=== PATIENT | female | born 1985 | race Caucasian/White ===

== ENCOUNTER 2021-02-04 08:15 | Inpatient (IN) | payer OTHER ==
[2021-02-04 09:37] VITALS: BMI 35.6
[2021-02-04] MEDS ORDERED: CITRIC ACID/SODIUM CITRATE 30 ML UNIT-DOSE CUP PO ONE (10:44)
[2021-02-04] MEDS ORDERED: DEXTROSE 5%-LACTATED RINGERS 1,000 ML IV SCH (11:00)
[2021-02-04] MEDS ORDERED: ePHEDrine SULFATE 50 MG/1 ML AMPULE ONE (11:04)
[2021-02-04] MEDS ORDERED: morphine SULFATE/PF 0.5 MG/ML (2cc Syringe - QUVA) ONE (11:04)
[2021-02-04] MEDS ORDERED: CEFAZOLIN 2 GM/D5W 2 GM/50 ML ML IVPB ONE (11:15)
[2021-02-04 12:30] LABS: CORD BASE EXCESS -11.2 mmol/L (0-2); CORD HCO3 20.3 mmHg (20-29); CORD PCO2 73.5 mmHg (30-78); CORD pH 7.059 (7.14-7.44)
[2021-02-04 12:30] LABS: CORD BASE EXCESS -7.9 mmol/L (0-2); CORD PCO2 56.7 mmHg (30-78); CORD pH 7.187 (7.14-7.44)
[2021-02-04] MEDS ORDERED: OXYTOCIN 10 UNITS/ML VIAL ONE (12:38)
[2021-02-04] MEDS ORDERED: SIMETHICONE 80 MG TAB.CHEW (FP) PO PRN (12:51)
[2021-02-04] MEDS ORDERED: METHYLERGONOVINE MALEATE 0.2 MG/1 ML AMP IM PRN (12:51)
[2021-02-04] MEDS ORDERED: ONDANSETRON 4 MG/2 ML VIAL ONE (14:14)
[2021-02-04] MEDS ORDERED: OXYTOCIN 20 UNITS in 0.9% NS 20 UNIT/1,000 ML INFUS.BAG IV ONE (14:15)
[2021-02-04] MEDS ORDERED: OXYTOCIN 20 UNITS in 0.9% NS 20 UNIT/1,000 ML INFUS.BAG IV SCH (14:15)
[2021-02-04] MEDS ORDERED: ONDANSETRON 4 MG/2 ML VIAL IVPB ONE (14:15)
[2021-02-04] MEDS ORDERED: morphine SULFATE/PF 0.5 MG/ML (2cc Syringe - QUVA) EP ONE (15:45)
[2021-02-04] MEDS ORDERED: ONDANSETRON 4 MG/2 ML VIAL IVPUSH PRN (15:45)
[2021-02-05 07:11] LABS: BASO % 0.4 % (0-2.0); EOS % 1.7 % (0-4.5); HEMATOCRIT 29.6 % (32.4-45.2); HEMOGLOBIN 10.5 GM/dL (10.7-15.3); LYMPH % 7.3 % (8-40); MCH 34.8 pg (25.7-33.7); MCHC 35.3 g/dl (32.0-36.0); MEAN CELL VOLUME 98.5 fl (80-96); MEAN PLT VOLUME 8.8 fl (7.5-11.1); MONO % 7.3 % (3.8-10.2); NEUT % 83.3 % (42.8-82.8); PLATELET COUNT 167 K/MM3 (134-434); RBC 3.01 M/mm3 (3.60-5.2); RDW 13.4 % (11.6-15.6); WHITE BLOOD COUNT 13.1 K/mm3 (4.0-10.0)
[2021-02-05] MEDS: oxyCODONE HCL 5 MG TABLET PO PRN ×3 (09:17→22:37)
[2021-02-05] MEDS ORDERED: BISACODYL 10 MG SUPP.RECT RC PRN (12:51)
[2021-02-05] MEDS: IBUPROFEN 600 MG TABLET (FP) PO PRN (22:37)
[2021-02-06] MEDS ORDERED: SODIUM CHLORIDE 0.9% 500 ML INFUS.BAG IV ONE (11:30)
[2021-02-06 11:44] LABS: HEMATOCRIT 28.6 % (32.4-45.2); HEMOGLOBIN 10.2 GM/dL (10.7-15.3); MCH 35.1 pg (25.7-33.7); MCHC 35.7 g/dl (32.0-36.0); MEAN CELL VOLUME 98.3 fl (80-96); MEAN PLT VOLUME 8.6 fl (7.5-11.1); PLATELET COUNT 217 K/MM3 (134-434); RBC 2.91 M/mm3 (3.60-5.2); RDW 13.5 % (11.6-15.6); WHITE BLOOD COUNT 13.6 K/mm3 (4.0-10.0)
[2021-02-06] MEDS ORDERED: ACETAMINOPHEN 325 MG TABLET (FP) ONE (12:42)
[2021-02-06] MEDS: IBUPROFEN 600 MG TABLET (FP) PO PRN (12:47)
[2021-02-07 08:17] LABS: BASO % 0.5 % (0-2.0); EOS % 2.9 % (0-4.5); HEMOGLOBIN 10.2 GM/dL (10.7-15.3); LYMPH % 11.4 % (8-40); MCH 34.8 pg (25.7-33.7); MCHC 35.3 g/dl (32.0-36.0); MEAN CELL VOLUME 98.7 fl (80-96); MEAN PLT VOLUME 8.3 fl (7.5-11.1); MONO % 4.4 % (3.8-10.2); NEUT % 80.8 % (42.8-82.8); PLATELET COUNT 222 K/MM3 (134-434); RBC 2.93 M/mm3 (3.60-5.2); RDW 13.4 % (11.6-15.6); WHITE BLOOD COUNT 11.9 K/mm3 (4.0-10.0)
[2021-02-07 12:21] VITALS: BP 132/75; PULSE 85; TEMP 97.8
== END 2021-02-07 13:00 | disposition home or self-care (01) | DRG 786 ==
LOC: JLDR 08:15 → J3W 14:40
PROVIDERS: ADMIT Obstetrics & Gynecology Maternal & Fetal Medicine; ATTEND Obstetrics & Gynecology Maternal & Fetal Medicine
PROC: 10D00Z1 Extraction of Products of Conception, Low, Open Approach (ICD-10-PCS; principal; 2021-02-04)
DX: O34.219 Maternal care for unspecified type scar from previous cesarean delivery (principal); O44.13 Complete placenta previa with hemorrhage, third trimester; Z3A.37 37 weeks gestation of pregnancy; Z37.0 Single live birth; R55 Syncope and collapse; W19.XXXA Unspecified fall, initial encounter; Y93.89 Activity, other specified; Y92.230 Patient room in hospital as the place of occurrence of the external cause
CPT/HCPCS: 36415; 36600; 82803; 82962; 85025; 85027; 86860; 88307-TC

== ENCOUNTER 2022-10-04 07:00 | Inpatient (IN) | payer OTHER ==
[2022-10-04] MEDS ORDERED: PROPOFOL 40 ML ONE (08:05)
[2022-10-04] MEDS ORDERED: FENTANYL CITRATE/PF 50 MCG/ML VIAL ONE (08:08)
[2022-10-04 08:45] LABS: BASO % 0.4 % (0-2.0); EOS % 1.8 % (0-4.5); HEMATOCRIT 41.5 % (32.4-45.2); HEMOGLOBIN 14.2 GM/dL (10.7-15.3); MCH 32.8 pg (25.7-33.7); MCHC 34.2 g/dl (32.0-36.0); MEAN CELL VOLUME 95.8 fl (80-96); MEAN PLT VOLUME 9.5 fl (7.5-11.1); MONO % 6.7 % (3.8-10.2); NEUT % 74.1 % (42.8-82.8); PLATELET COUNT 212 10^3/uL (134-434); RBC 4.33 M/mm3 (3.60-5.2); RDW 16.5 % (11.6-15.6); WHITE BLOOD COUNT 7.7 K/mm3 (4.0-10.0)
[2022-10-04 08:49] LABS: INR 0.92 (0.83-1.09); PROTHROMBIN TIME (PATIENT) 10.6 SEC (9.7-13.0)
[2022-10-04 08:52] LABS: ACTIVATED PTT 32.7 SECONDS (25.2-36.5)
[2022-10-04 09:00] LABS: CALCIUM 8.5 mg/dL (8.5-10.1)
[2022-10-04 09:01] LABS: BLOOD UREA NITROGEN 6.8 mg/dL (7-18)
[2022-10-04 09:02] VITALS: BMI 35.6
[2022-10-04 09:04] LABS: CREATININE 0.5 mg/dL (0.55-1.3)
[2022-10-04] MEDS ORDERED: ePHEDrine SULFATE 50 MG/1 ML AMPULE ONE (09:56)
[2022-10-04 10:59] LABS: CORD HCO3 23.1 mmHg (20-29); CORD PCO2 49.7 mmHg (30-78); CORD pH 7.285 (7.14-7.44)
[2022-10-04 11:02] LABS: CORD HCO3 23.4 mmHg (20-29); CORD PCO2 59.1 mmHg (30-78); CORD pH 7.215 (7.14-7.44)
[2022-10-04] MEDS ORDERED: OXYTOCIN 20 UNITS in 0.9% NS 20 UNIT/1,000 ML INFUS.BAG IV ONE (11:36)
[2022-10-04] MEDS: OXYTOCIN 20 UNITS in 0.9% NS 20 UNIT/1,000 ML INFUS.BAG IV SCH (11:40)
[2022-10-04 12:10] LABS: HIV INTERPRETATION NEGATIVE (NEGATIVE)
[2022-10-04] MEDS ORDERED: CITRIC ACID/SODIUM CITRATE 30 ML UNIT-DOSE CUP PO ONE (12:14)
[2022-10-04] MEDS ORDERED: ELECTROLYTE-148 SOLN 500 ML IV ONE (12:17)
[2022-10-04] MEDS ORDERED: ACETAMINOPHEN 325 MG TABLET (FP) PO PRN ×2 (12:17→15:12)
[2022-10-04] MEDS ORDERED: IBUPROFEN 600 MG TABLET (FP) PO PRN (15:12)
[2022-10-04] MEDS ORDERED: ONDANSETRON 4 MG/2 ML VIAL IVPUSH PRN (15:12)
[2022-10-04] MEDS ORDERED: morphine SULFATE/PF 1 MG/2 ML (2cc Syringe - QUVA) EP ONE (15:12)
[2022-10-04] MEDS ORDERED: ACETAMINOPHEN 1000 MG/100 ML BAG IVPB PRN (15:20)
[2022-10-04] MEDS: IBUPROFEN 800 MG/8 ML IJ IVPB PRN (15:30)
[2022-10-04] MEDS: FERROUS SO4 325 MG TABLET (FP) PO SCH (21:57)
[2022-10-05] MEDS ORDERED: oxyCODONE HCL 5 MG TABLET PO PRN (00:17)
[2022-10-05 06:43] LABS: BASO % 0.3 % (0-2.0); EOS % 1.2 % (0-4.5); HEMATOCRIT 34.9 % (32.4-45.2); HEMOGLOBIN 11.7 GM/dL (10.7-15.3); LYMPH % 10.5 % (8-40); MCH 32.6 pg (25.7-33.7); MCHC 33.6 g/dl (32.0-36.0); MEAN CELL VOLUME 97.2 fl (80-96); MEAN PLT VOLUME 9.4 fl (7.5-11.1); MONO % 6.6 % (3.8-10.2); NEUT % 81.4 % (42.8-82.8); PLATELET COUNT 187 10^3/uL (134-434); WHITE BLOOD COUNT 11.5 K/mm3 (4.0-10.0)
[2022-10-05] MEDS ORDERED: SODIUM CHLORIDE 1,000 ML IV SCH (07:00)
[2022-10-05] MEDS ORDERED: SODIUM CHLORIDE 0.45% 1,000 ML IV SCH (07:00)
[2022-10-05 07:20] LABS: BASO % 0.5 % (0-2.0); EOS % 1.2 % (0-4.5); HEMATOCRIT 36.3 % (32.4-45.2); LYMPH % 11.3 % (8-40); MEAN CELL VOLUME 96.8 fl (80-96); MEAN PLT VOLUME 9.1 fl (7.5-11.1); MONO % 6.7 % (3.8-10.2); NEUT % 80.3 % (42.8-82.8); PLATELET COUNT 185 10^3/uL (134-434); RBC 3.75 M/mm3 (3.60-5.2); RDW 16.4 % (11.6-15.6); WHITE BLOOD COUNT 12.2 K/mm3 (4.0-10.0)
[2022-10-05 07:40] LABS: CREATININE 0.5 mg/dL (0.55-1.3)
[2022-10-05 07:41] LABS: BILIRUBIN,TOTAL 0.4 mg/dL (0.2-1); TOT PROT 5.4 g/dl (6.4-8.2)
[2022-10-05] MEDS: IBUPROFEN 800 MG/8 ML IJ IVPB PRN (09:19)
[2022-10-05] MEDS: FERROUS SO4 325 MG TABLET (FP) PO SCH ×2 (11:01→22:39)
[2022-10-05] MEDS: PRENATAL VITAMINS W/ FOLIC ACID TABLET (FP) PO SCH (11:01)
[2022-10-05] MEDS ORDERED: BISACODYL 10 MG SUPP.RECT RC PRN (12:17)
[2022-10-05] MEDS: IBUPROFEN 600 MG TABLET (FP) PO PRN ×2 (16:08→22:39)
[2022-10-05] MEDS: SIMETHICONE 80 MG TAB.CHEW (FP) PO PRN ×2 (16:09→22:39)
[2022-10-05 18:36] LABS: EPI CELLS >36 /uL (0-25.1); HYALINE CASTS 2 /uL (0-3.1); PH,URINE 5.5 (5.0-8.0); URINE APPEARANCE CLOUDY; URINE BACTERIA 4 /uL (0-1359); URINE BILIRUBIN NEGATIVE (NEGATIVE); URINE COLOR RED; URINE GLUCOSE (UA) NEGATIVE (NEGATIVE); URINE KETONE NEGATIVE (NEGATIVE); URINE LEUK ESTERASE 2+ (NEGATIVE); URINE NITRITE NEGATIVE (NEGATIVE); URINE PROTEIN 2+ (NEGATIVE); URINE RBC 2187 /uL (0-23.9); URINE UROBILINOGEN 0.2 mg/dL (0.2-1.0); URINE WBC 219 /uL (0-25.8)
[2022-10-05] MEDS: OXYTOCIN 20 UNITS in 0.9% NS 20 UNIT/1,000 ML INFUS.BAG IV SCH (20:43)
[2022-10-06] MEDS: SIMETHICONE 80 MG TAB.CHEW (FP) PO PRN ×3 (08:32→21:21)
[2022-10-06] MEDS: IBUPROFEN 600 MG TABLET (FP) PO PRN ×3 (08:32→21:21)
[2022-10-06] MEDS: PRENATAL VITAMINS W/ FOLIC ACID TABLET (FP) PO SCH (09:33)
[2022-10-06] MEDS: FERROUS SO4 325 MG TABLET (FP) PO SCH ×2 (09:33→21:20)
[2022-10-06 22:46] VITALS: TEMP 98.2
[2022-10-07] MEDS: IBUPROFEN 600 MG TABLET (FP) PO PRN (07:58)
[2022-10-07 08:24] LABS: BASO % 0.6 % (0-2.0); EOS % 4.3 % (0-4.5); HEMATOCRIT 32.9 % (32.4-45.2); HEMOGLOBIN 11.2 GM/dL (10.7-15.3); LYMPH % 19.8 % (8-40); MCH 33.3 pg (25.7-33.7); MEAN PLT VOLUME 9.6 fl (7.5-11.1); MONO % 6.8 % (3.8-10.2); NEUT % 68.5 % (42.8-82.8); PLATELET COUNT 207 10^3/uL (134-434); RBC 3.36 M/mm3 (3.60-5.2); RDW 16.6 % (11.6-15.6); WHITE BLOOD COUNT 8.6 K/mm3 (4.0-10.0)
[2022-10-07] MEDS: FERROUS SO4 325 MG TABLET (FP) PO SCH (09:13)
[2022-10-07] MEDS: PRENATAL VITAMINS W/ FOLIC ACID TABLET (FP) PO SCH (09:13)
[2022-10-07 11:08] VITALS: BP 104/71; PULSE 84; RESP 16
== END 2022-10-07 12:05 | disposition home or self-care (01) | DRG 540 ==
LOC: JLDR 07:00 → J3W 12:55
PROVIDERS: ADMIT Obstetrics & Gynecology Maternal & Fetal Medicine; ATTEND Obstetrics & Gynecology Maternal & Fetal Medicine
PROC: 10D00Z1 Extraction of Products of Conception, Low, Open Approach (ICD-10-PCS; principal; 2022-10-04)
PROC: 0UL70ZZ Occlusion of Bilateral Fallopian Tubes, Open Approach (ICD-10-PCS; 2022-10-04)
DX: O34.211 Maternal care for low transverse scar from previous cesarean delivery (principal); O90.89 Other complications of the puerperium, not elsewhere classified; R55 Syncope and collapse; O99.892 Other specified diseases and conditions complicating childbirth; N73.6 Female pelvic peritoneal adhesions (postinfective); Z30.2 Encounter for sterilization; Z3A.39 39 weeks gestation of pregnancy; Z37.0 Single live birth
CPT/HCPCS: 36415; 36600; 70450-TC; 80048; 80053; 81003; 82803; 82962; 85025; 85610; 85730; 86780; 86850; 86900; 86901; 87389; 88302-TC; 88307-TC; 93005; 93010; C9803-CS; U0003; U0005